=== PATIENT | female | born 1930 | race Caucasian/White ===

== ENCOUNTER 2019-02-06 10:07 | Outpatient (CLI) | payer MEDICARE, BC ==
--- NOTE | 2019-02-06 12:09 | BD ---
BONE DENSITOMETRY USING DEXA: Date: 02/06/19 HISTORY: Postmenopausal screening for osteoporosis. FINDINGS: Lumbar Spine: BMD (g/cm2) L1 1.041 T-Score: 0.5 L2 0.940 T-Score: -0.8 L3 1.004 T-Score: -0.7 L4 1.052 T-Score: -0.1 L1-L4 1.009 T-Score: -0.3 Femoral Neck: 0.632 T-Score: -2.0 Total Femur: 0.801 T-Score: -1.2 IMPRESSION: Osteopenia. POS: [facility]
--- NOTE | 2019-02-25 15:52 | MMO ---
Bilateral MAMMO Bilat Screen [facility]. CLINICAL HISTORY: Patient is 88 years old and is seen for screening. The patient has no family history of breast cancer. The patient has no personal history of cancer. VIEWS: The views performed were: bilateral craniocaudal with tomosynthesis and bilateral mediolateral oblique with tomosynthesis. FILMS COMPARED: The present examination has been compared to prior imaging studies performed at [facility] on 02/15/2000, 07/31/2001, 09/13/2004, 11/05/2005, 12/06/2006, 12/16/2007, 12/17/2008, 12/19/2009, 08/11/2012, 09/16/2013, 10/05/2014, 07/30/2016 and 08/14/2017. MAMMOGRAM FINDINGS: The breasts are heterogeneously dense, which could obscure a lesion on mammography. There are stable benign appearing calcifications seen in both breasts. There are no suspicious masses, suspicious calcifications, or new areas of architectural distortion. IMPRESSION: THERE IS NO MAMMOGRAPHIC EVIDENCE OF MALIGNANCY. A ROUTINE FOLLOW-UP MAMMOGRAM IN 1 YEAR IS RECOMMENDED. THE RESULTS OF THIS EXAM WERE SENT TO THE PATIENT. ACR BI-RADS Category 2 - Benign finding MAMMOGRAPHY NOTE: 1. A negative mammogram report should not delay a biopsy if a dominant of clinically suspicious mass is present. 2. Approximately 10% to 15% of breast cancers are not detected by mammography. 3. Adenosis and dense breasts may obscure an underlying neoplasm.
== END 2019-02-06 10:08 | disposition home or self-care (01) ==
LOC: BICMAMMO 10:07
PROVIDERS: ATTEND Family Medicine
DX: Z12.31 Encounter for screening mammogram for malignant neoplasm of breast (principal); M85.859 Other specified disorders of bone density and structure, unspecified thigh
CPT/HCPCS: 77063; 77067; 77080